=== PATIENT | male | born 1990 | race Caucasian/White ===

== ENCOUNTER 2024-05-22 17:44 | Emergency (ER) | payer OTHER ==
[~2024-05-22] VITALS: Ht 170.2 cm; Wt 113.0 kg
[2024-05-22 17:55] VITALS: O2SAT 97
[2024-05-22] MEDS: MORPHINE SULFATE 4 MG/ML INJ (FOR IV/IM USE) IV ONE (19:02)
[2024-05-22] MEDS ORDERED: KETOROLAC 30MG/ML VIAL IV ONE (19:15)
[2024-05-22] MEDS: KETOROLAC 30MG/ML VIAL IV NR (20:23)
[2024-05-22] MEDS ORDERED: IBUP-2029 MT (22:06)
[2024-05-22] MEDS ORDERED: KETOROLAC 30MG/ML VIAL IV NR (23:45)
[2024-05-23 02:08] VITALS: BP 120/60; PULSE 86; RESP 18; TEMP 37.00296; O2SAT 98
== END 2024-05-23 02:34 | disposition home or self-care (01) ==
LOC: ER 17:44 → 5WST 05-23 00:44 → EDBEDREQ 05-23 00:44 → UNDOADMIN 05-23 00:44 → UNDODISIN 05-23 02:33
DX: S86.812A Strain of other muscle(s) and tendon(s) at lower leg level, left leg, initial encounter (principal); E11.9 Type 2 diabetes mellitus without complications; I10 Essential (primary) hypertension; W18.39XA Other fall on same level, initial encounter; Y93.89 Activity, other specified; Y92.89 Other specified places as the place of occurrence of the external cause; Y99.8 Other external cause status
CPT/HCPCS: 73560; 96374; 99285; J1885; J2270; L1830; Z7610